=== PATIENT | male | born 1985 | race Caucasian/White ===

== ENCOUNTER 2016-08-04 06:38 | Emergency (ER) | payer BC ==
[2016-08-04 06:51] VITALS: RESP 18; TEMP 96.3
[2016-08-04] MEDS ORDERED: MORPHINE SULFATE 4 MG/1 ML IVP ONE (06:55)
[2016-08-04] MEDS ORDERED: ONDANSETRON 4 MG/2 ML VIAL IVP ONE (06:55)
[2016-08-04] MEDS ORDERED: Sodium Chloride 0.9% 1,000 ML PRIMARY IV ONE (06:55)
--- NOTE | 2016-08-04 06:56 | PDOC ---
Abdomen/Flank HPI - General Chief Complaint: Abdomen Pain Stated Complaint: abd pain Date Seen by Provider: 08/04/16 Time Seen by Provider: 06:50 Source: POSITIVE: Patient Exam Limitations: POSITIVE: No limitations Nurse's Notes Reviewed & Considered: Yes - History of Present Illness Initial Comments: Patient was in his normal state of good health until he ate dinner last night. After dinner he began to develop epigastric pain which has been unrelenting and he has been unable to find anything to relieve his pain. He denies having any nausea vomiting or diarrhea, no hematuria or dysuria, no rashes, no headache, no sore throat, no chest pain shortness of breath or cough, no myalgias. His pain is predominantly in the epigastrium with no radiation, he describes it as burning. Body Location Affected: REPORTS: Abdomen Timing: REPORTS: Abrupt, Constant Duration: <24 hours Severity: Moderate Quality: REPORTS: Burning, "Pain" Abdominal Pain Onset Location: REPORTS: Epigastric Abdominal Pain Radiation: REPORTS: No radiation Context: REPORTS: None Modifying Factors: improves with: Nothing Associated Symptoms: REPORTS: Denies symptoms Similar Symptoms Previously: No Recent Care Received: REPORTS: Denies Any Prior Injuries Related to Current Complaint?: No - Patient Home Medications Home Medications: Home Medications Proair Hfa 2 puff INH Q4-6H #1 inhaler 06/10/12 Fluticasone Propionate [Flovent Hfa] 2 puff INH BID #1 inh 02/01/16 - Patient Allergies Allergies/Adverse Reactions: Allergies Allergy/AdvReac Type Severity Reaction Status Date / Time anmials Allergy Mild NOT Uncoded 08/04/16 06:42 APPLICABLE Past Medical History - heen HEENT History: Denies History Cardiovascular History: Denies History Respiratory History: Asthma Gastrointestinal History: Denies History Genitourinary History: Denies History Endocrine History: Denies History Musculoskeletal History: Denies History Neurological History: Denies History Blood Disorders: Denies History Psychiatric History: Denies History History of Sexually Transmitted Diseases: No Male Reproductive History: Denies History Cancer History: Denies History In Past Year Been Physically Harmed or Verbally Threatened: No History of MDRO: No Tobacco Use: Never Smoker Alcohol Use: Rarely Substance Use Type: None Previous Surgical History: No Significant Family History: No pertinent family hx ROS - Limitations ROS Limitations: No Limitations Constitution: REPORTS: Denies Symptoms Cardiovascular: REPORTS: Denies Cardiac Symptoms Respiratory: REPORTS: Denies Resp Symptoms Neurological: REPORTS: Denies Neuro Symptoms Gastrointestinal: REPORTS: Abdominal Pain Endocrine: REPORTS: Denies Symptoms Musculoskeletal: REPORTS: Denies MS Symptoms Genitourinary: REPORTS: Denies Symptoms Eyes: REPORTS: Denies Symptoms ENT: REPORTS: Denies Symptoms Skin: REPORTS: Denies Skin Symptoms Lympathic: REPORTS: Denies Lympathic Symptoms Immunologic: POSITIVE: Denies Symptoms Psychiatric: POSITIVE: Denies Psych Symptoms Abdominal/Flank Pain PE - General Appearance General Appearance: POSITIVE: Alert, Cooperative, No Evidence of Trauma, Moderate Distress - HEENT HEENT: POSITIVE: Head Inspection Nml, Eyes Inspection Nml, Ears Inspection Nml, Nose Inspection Nml, PERRL, EOMI - Neck Neck: POSITIVE: Normal Inspection, No Apparent Injury - Respiratory Respiratory: POSITIVE: No Respiratory Distress, Breath Sounds Normal, Chest Non- Tender - Cardiovascular Cardiovascular: POSITIVE: Regular Rate and Rhythm, Heart Sounds Normal - Abdomen Abdomen: Soft: (All Quadrants), Normal Bowel Sounds: (All Quadrants), Tenderness Noted: (RUQ), (LUQ) - Back Back: POSITIVE: Normal Inspection - Skin Skin: POSITIVE: Intact, Normal For Race, Warm, Dry, No Rash - Extremities Extremity: Non-Tender: (All Extremities), Normal ROM: (All Extremities), Normal Inspection: (All Extremities) - Neurological Neurological: POSITIVE: Affect Apporpriate, Oriented X3 - Psychological Psychiatric: POSITIVE: Affect Appropriate, Mood Appropriate Abdomen Progress - Results Reviewed by me Xrays/CTs/US Reviewed by me: Yes Discussed with Radiologist: Yes Lab Results Reviewed: Yes Lab Results:: Laboratory Results 08/04/16 08/04/16 Range/Units 07:00 07:36 WBC 7.16 (4.8-10.8) 10^3/uL RBC 5.18 (4.70-6.10) 10^6/uL Hgb 15.8 (14.0-18.0) g/dL Hct 45.3 (42.0-52.0) % MCV 87.5 (80-90) FL MCH 30.5 (27-31) PG MCHC 34.9 (33-37) g/dL RDW Std Deviation 40.9 (39-50) fL RDW Coeff of [place] 12.9 (11.5-14.5) % Plt Count 226 (140-350) 10*3/uL MPV 9.3 (7.4-12.2) FL Immature Gran % (Auto) 0.1 (0-5) % Neut % (Auto) 63.9 (50-80) % Lymph % (Auto) 22.9 (10-50) % [place] % (Auto) 7.8 (5-15) % Eos % (Auto) 5.0 (0-8) % Baso % (Auto) 0.3 (0-1) % Immature Gran # (Auto) 0.01 10*3/UL Neut # (Auto) 4.57 10*3/UL Lymph # (Auto) 1.64 10*3/uL [place] # (Auto) 0.56 (0.3-0.8) 10*3/UL Eos # (Auto) 0.36 10*3/UL Baso # (Auto) 0.02 10*3/UL WBC Morphology Comment Normal morphology (NORM) Plt Morphology Comment Normal morphology (NORM) RBC Morph Comment Normal morphology (NORM) Sodium 142 (135-145) meq/L Potassium 4.3 (3.8-5.2) meq/L Chloride 106 (98-112) meq/L Carbon Dioxide 25 (23-33) meq/L Anion Gap 11 (5-20) BUN 17 (7-22) mg/dL Creatinine 1.1 (0.70-1.50) mg/dL Estimated GFR > 60 (>60 ml/min/1.73m(2)) BUN/Creatinine Ratio 15.45 (6-20) Glucose 95 (78-110) mg/dL Calculated Osmolality 295.0 H (267-292) mOsm/kg Calcium 9.7 (8.7-10.7) mg/dL Magnesium 2.1 (1.6-2.4) mg/dL Total Bilirubin 0.8 (0.3-1.2) mg/dL AST 31 (21-57) IU/L ALT 30 (21-72) IU/L Alkaline Phosphatase 87 (38-126) IU/L Total Protein 7.4 (6.1-8.0) g/dL Albumin 4.6 (3.5-4.8) g/dL Globulin 2.7 (2.50-4.10) g/dL Albumin/Globulin Ratio 1.70 (1.3-2.0) mg/g Ur Collection Type Clean catch urine Urine Color Yellow Urine Clarity Clear (CLEAR) Urine pH 5.5 (5.0-8.5) Ur Specific [place] 1.020 (1.005-1.030) Urine Protein Negative (NEG) mg/dl Urine Glucose (UA) Negative (NEG) mg/dL Urine Ketones Negative (NEG) Urine Occult Blood Negative (NEG) Urine Nitrate Negative (NEG) Urine Bilirubin Negative (NEG) Urine Urobilinogen 0.2 (0.2) EU/dL Ur Leukocyte Esterase Negative (NEG) Ur Culture Indicated? Culture not set - Patient's Progress Pain Medication Addressed: POSITIVE: Yes Re-examine Time: 08:28 Status: POSITIVE: Improved MDM / ED Course: Patient comes in today with chief complaint of epigastric pain, he was examined , an IV started, blood drawn and sent to lab for studies, radiographic studies obtained. He received a liter of normal saline, morphine, Zofran. His symptoms significantly improved. He had no episodes of vomiting here. Laboratory findings: Unremarkable CT findings: No acute intra-abdominal or intrapelvic abnormalities. Assessment: Abdominal pain which has improved Plan: Patient is being discharged home with a prescription for [place] No. [address], and Zofran. Instructions to return if he has increasing pain, vomiting, diarrhea, or blood in either. - Consult Counseled: POSITIVE: Patient, Family, RE: Lab Results, RE: Radiology Results, RE : DX, RE: Need for F/U Patient Care Time - Estimated PCT Patient Care Time (In Minutes): 20 Vital Signs - Recent Vital Signs Vital Signs: Vital Signs (Last 8 hours) Temp Pulse Resp BP Pulse Ox 08/04/16 06:47 96.3 F L 72 18 153/101 96 - VS Reviewed Vital Signs Reviewed: Yes Discharge Clinical Impression: Abdominal pain Condition: Stable Patient Instructions Given at Discharge: Acute Abdominal Pain (ED), Gastritis ( ED)
[2016-08-04] MEDS ORDERED: Famotidine Inj 20 MG in Normal Saline Flush 10 ML IVP ONE (07:01)
[2016-08-04 07:06] LABS: BASOPHILS # (AUTO) 0.02 10*3/UL; BASOPHILS % (AUTO) 0.3 % (0-1); HEMATOCRIT 45.3 % (42.0-52.0); HEMOGLOBIN 15.8 g/dL (14.0-18.0); IMM GRAN % (AUTO) 0.1 % (0-5); IMM GRAN# (AUTO) 0.01 10*3/UL; LYMPHOCYTES # (AUTO) 1.64 10*3/uL; LYMPHOCYTES % (AUTO) 22.9 % (10-50); MEAN CORPUSCULAR HEMOGLOBIN 30.5 PG (27-31); MEAN CORPUSCULAR HGB CONC 34.9 g/dL (33-37); MEAN PLATELET VOLUME 9.3 FL (7.4-12.2); MONOCYTES # (AUTO) 0.56 10*3/UL (0.3-0.8); MONOCYTES % (AUTO) 7.8 % (5-15); NEUTROPHILS # (AUTO) 4.57 10*3/UL; NEUTROPHILS % (AUTO) 63.9 % (50-80); RDW COEFFICIENT OF VARIATION 12.9 % (11.5-14.5); RED BLOOD COUNT 5.18 10^6/uL (4.70-6.10); WHITE BLOOD COUNT 7.16 10^3/uL (4.8-10.8)
[2016-08-04 07:07] LABS: PLATELET MORPHOLOGY COMMENT NORMAL MORPHOLOGY (NORM)
[2016-08-04 07:16] LABS: ASPARTATE AMINO TRANSFERASE 31 IU/L (21-57); BILIRUBIN,TOTAL 0.8 mg/dL (0.3-1.2); BLOOD UREA NITROGEN 17 mg/dL (7-22); BUN/CREATININE RATIO 15.45 (6-20); CALCIUM 9.7 mg/dL (8.7-10.7); CHLORIDE 106 meq/L (98-112); CREATININE 1.1 mg/dL (0.70-1.50); EST GLOMERULAR FILTRATION > 60 (>60 ml/min/1.73m(2)); GLUCOSE 95 mg/dL (78-110); MAGNESIUM 2.1 mg/dL (1.6-2.4); POTASSIUM 4.3 meq/L (3.8-5.2); SODIUM 142 meq/L (135-145); TOTAL PROTEIN 7.4 g/dL (6.1-8.0)
[2016-08-04 07:45] LABS: BILIRUBIN,URINE NEGATIVE (NEG); CLARITY,URINE CLEAR (CLEAR); GLUCOSE, URINE (UA) NEGATIVE (NEG); LEUKOCYTE ESTERASE ,URINE NEGATIVE (NEG); NITRATE,URINE NEGATIVE (NEG); OCCULT BLOOD,URINE NEGATIVE (NEG); PH,URINE 5.5 (5.0-8.5); PROTEIN,URINE NEGATIVE (NEG); UROBILINOGEN,URINE 0.2 EU/dL (0.2)
[2016-08-04 07:47] LABS: URINE SAMPLE TYPE CLEAN CATCH URINE
--- NOTE | 2016-08-04 08:21 | DI ---
CT ABDOMEN SCAN WITH IV CONTRAST, 08/04/2016 6:55 AM : Clinical History: Epigastric pain. Previous Exam: None at this facility. Scans are performed from the lower lung bases through the liver and kidneys with IV contrast. 95 ml o f Isovue 300 was injected IV. No oral or rectal contrast was ordered. The lung bases are clear. The liver is normal. The gallbladder is grossly normal. There is no abnorma lity of the spleen, pancreas, and adrenal glands. Both kidneys are normal in size, shape, position an d contour. There is no hydronephrosis or hydroureter. The left renal pelvis is dilated but there is n o caliectasis in the left ureter is normal. 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 No renal or ureteral calculi are present. There are no abnorma l retrocrural or periaortic nodes. No ascites is present. READIN. Normal CT abdomen scan. 2. 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 CT PELVIS SCAN WITH IV CONTRAST, 08/04/2016 6:55 AM: Clinical History: See above. Previous Exam: None at this facility. Scans are performed from just superior to the umbilicus to the symphysis pubis with IV contrast. This is the same bolus of contrast used for the CT scans of the abdomen. Scans through the lower abdomen and pelvis show no masses or abnormal fluid collections. There is no adenopathy. The appendix is normal. The small bowel, terminal ileum, and ileocecal valve are normal. The colon is also normal. There are no hernias. READING: Normal CT scan of the pelvis.
[2016-08-04] MEDS ORDERED: Sodium Chloride 0.9% 1,000 ML ONE (14:30)
== END 2016-08-04 08:47 | disposition home or self-care (01) ==
LOC: ER 06:38
DX: R10.13 Epigastric pain (principal)
CPT/HCPCS: 74177; 80053; 81003; 83735; 85025; 96361; 96374; 96375; 99283; J2270; J2405; J7030

== ENCOUNTER → 2016-08-31 | Outpatient (CLI) | payer BC ==
[2016-08-31 08:49] LABS: FREE T4 (FREE THYROXINE) 1.21 ng/dL (0.93-1.71)
== END ==
LOC: LAB 07:08
PROVIDERS: ATTEND Student in an Organized Health Care Education/Training Program
DX: R94.6 Abnormal results of thyroid function studies (principal)
CPT/HCPCS: 36415; 84439; 84443